=== PATIENT | male | born 1965 | race Hispanic/Latino ===

== ENCOUNTER 2022-11-01 16:05 | Emergency (ER) | payer SELFPAY ==
[2022-11-01 17:01] LABS: Absolute Lymphocytes (CBC) 1.9 K/uL (0.7-4.9); Hematocrit 41.6 % (39.6-49.0); Lymphocytes % 21.9 % (15.3-44.8); MCV 86.5 fL (80-100); MPV 8.6 fL (7.6-11.3); RBC Red Blood Cell Count 4.81 M/uL (4.33-5.43)
--- NOTE | 2022-11-01 17:24 | RAD REPORT ---
EXAM DESCRIPTION: CT - Head Brain Wo Cont - 11/01/2022 5:05 pm CLINICAL HISTORY: facial droop Headache, drowsiness COMPARISON: No comparisons TECHNIQUE: All CT scans are performed using dose optimization technique as appropriate and may inclu de automated exposure control or mA/KV adjustment according to patient size. FINDINGS: No intracranial hemorrhage, hydrocephalus or extra-axial fluid collection.No areas of brai n edema or evidence of midline shift. The paranasal sinuses and mastoids are clear. The calvarium is intact. IMPRESSION: No acute intracranial abnormality.
[2022-11-01 17:27] LABS: Albumin 3.8 g/dL (3.4-5.0); Bilirubin Total 0.6 mg/dL (0.2-1.0); Potassium 3.6 mmol/L (3.5-5.1); Protein, Total 7.6 g/dL (6.4-8.2); Troponin High Sensitivity 5.8 pg/mL (<58.9)
[2022-11-01] MEDS ORDERED: predniSONE 20 MG TAB ONE (17:41)
[2022-11-01] MEDS ORDERED: VALACYCLOVIR 500 MG TAB ONE (17:41)
--- NOTE | 2022-11-01 18:05 | EDPHYS ---
Physician Documentation [facility] Name: González Augustine Age: 57 yrs Sex: Male : 1965 Arrival Date: 11/01/2022 Time: 16:08 Bed 15 Private MD: ED Physician Mary Jane Alvarez HPI: 11/01 17:20 This 57 yrs old Male presents to ER via EMS with complaints of Facial Droop. sd2 17:20 57 yo M presents via EMS with CC of facial droop. First noticed by the family to have sd2 some drooping of the left side of his face this afternoon. LKW time that patient knows for sure was last night when he went to bed. Pt denies any slurred speech, vision changes, numbness or weakness. Reports incomplete closure when he blinks of his right eyelid. . Historical: - Allergies: 16:11 No Known Allergies; eh3 - Home Meds: 16:33 acetaminophen-codeine 300-30 mg Oral tab 1 tab every 4 hours [Active]; cephalexin 500 eh3 mg Oral tab 1 tab Q4H prn [Active]; Zofran (as hydrochloride) 4 mg Oral tab 1 tabs Q4H prn [Active]; - PMHx: 16:33 Pneumonia; eh3 - Immunization history:: Adult Immunizations up to date. - Social history:: Smoking status: unknown. ROS: 17:20 Constitutional: Negative for fever, chills, and weight loss, Eyes: Negative for injury, sd2 pain, redness, and discharge, Cardiovascular: Negative for chest pain, palpitations, and edema, Respiratory: Negative for shortness of breath, cough, wheezing. Abdomen/GI: Negative for abdominal pain, nausea, vomiting, diarrhea. MS/Extremity: Negative for injury and deformity, Skin: Negative for injury, rash, and discoloration, Neuro: Negative for headache, numbness and tingling. Positive for facial droop Exam: 17:20 Constitutional: This is a well developed, well nourished patient who is awake, alert, sd2 and in no acute distress. Head/Face: Normocephalic, atraumatic. Eyes: EOMI, normal conjunctiva bilaterally Chest/axilla: Normal chest wall appearance and motion. Nontender with no deformity. Cardiovascular: Regular rate and rhythm with a normal S1 and S2. No gallops, murmurs, or rubs. 2+ distal pulses. Respiratory: Lungs have equal breath sounds bilaterally, clear to auscultation and percussion. No rales, rhonchi or wheezes noted. No increased work of breathing, no retractions or nasal flaring. Abdomen/GI: Soft, non-tender, with normal bowel sounds. No guarding or rebound. No evidence of tenderness throughout. Skin: Warm, dry with normal turgor. Normal color with no rashes, no lesions, and no evidence of cellulitis. MS/ Extremity: Pulses equal, no cyanosis. Neurovascular intact. Full, normal range of motion. Ambulatory without difficulty. Neuro: Awake and alert, GCS 15, oriented to person, place, time, and situation. Pt on initial inspection with what appears to be L lower facial droop but upon cranial nerve testing, the left side of the face is fully functioning but the right side appears to have paralysis with incomplete closure of R eyelid when blinking. Motor function of bilateral forehead appears intact. Motor strength 5/5 in all extremities. Sensory grossly intact. Cerebellar exam normal. Normal gait. Psych: Awake, alert, with orientation to person, place and time. Behavior, mood, and affect are within normal limits. Vital Signs: 16:11 BP 142 / 79; Pulse 64; Resp 18; Pulse Ox 99% on R/A; eh3 17:00 BP 149 / 82; Pulse 67; Resp 19; Pulse Ox 100% on R/A; eh3 MDM: 16:08 Patient medically screened. sd2 17:20 Data reviewed: vital signs, nurses notes. sd2 18:02 Data reviewed: lab test result(s), radiologic studies. Counseling: I had a detailed sd2 discussion with the patient and/or guardian regarding: the historical points, exam findings, and any diagnostic results supporting the discharge/admit diagnosis, lab results, radiology results, the need for outpatient follow up, to return to the emergency department if symptoms worsen or persist or if there are any questions or concerns that arise at home. Medical screen evaluation completed. EMTALA emergency medical condition absent. ED course: Labs and imaging reviewed. Labs grossly WNCL. CT with no acute abnormality. Exam consistent with Velarde's palsy. No further neuro deficits or changes while in ER. Will plan to discharge with steroids and antivirals. Pt in agreement with discharge plan and will follow up with PCP. Verbalizes understanding of discharge plan and strict return precautions. . 11/01 16:28 Order name: Glucose, Ancillary Testing; Complete Time: 16:29 EDNC 11/01 16:40 Order name: CBC with Diff; Complete Time: 17:26 sd2 11/01 16:40 Order name: CMP; Complete Time: 17:29 sd2 11/01 16:40 Order name: Troponin High Sensitivity; Complete Time: 17:29 sd2 11/01 16:40 Order name: CT Head Brain wo Cont; Complete Time: 17:26 sd2 11/01 16:40 Order name: EKG - Nurse/Tech; Complete Time: 16:55 sd2 Administered Medications: 15:45 Drug: predniSONE 60 mg Route: PO; 3 18:16 Follow up: Response: No adverse reaction 3 15:45 Drug: valACYclovir 1000 mg Route: PO; 3 18:16 Follow up: Response: No adverse reaction 3 Point of Care Testing: Blood Glucose: 16:11 Blood Glucose: 108 mg/dL; 3 Ranges: Critical Glucose Levels:Adult <50 mg/dl or >400 mg/dl <40 mg/dl or >180 mg/dl Disposition Summary: 11/01/22 18:04 Discharge Ordered Location: Home sd2 Problem: new sd2 Symptoms: are unchanged sd2 Condition: Stable sd2 Diagnosis - Velarde's palsy sd2 Followup: sd2 - With: Private Physician - When: 2 - 3 days - Reason: Recheck today's complaints, Continuance of care, Re-evaluation by your physician Discharge Instructions: - Discharge Summary Sheet sd2 - Velarde Palsy, Adult sd2 Forms: - Medication Reconciliation Form sd2 - Thank You Letter sd2 - Antibiotic Education sd2 - Prescription Opioid Use sd2 Prescriptions: - Prednisone 20 mg Oral Tablet - take 3 tablets by ORAL route once daily for 7 days; 21 tablet; Refills: 0, sd2 Product Selection Permitted - Valtrex 1 gram Oral tablet - take 1 tablet by ORAL route 3 times per day for 7 days; 21 tablet; Refills: 0, jmm Product Selection Permitted Signatures: Dispatcher [employer] Shandra Orozco RN RN 3 Mary Jane Alvarez MD MD sd2
--- NOTE | 2022-11-01 18:05 | ER ---
Nurse's Notes [facility] Name: González Augustine Age: 57 yrs Sex: Male : 1965 Arrival Date: 11/01/2022 Time: 16:08 Bed 15 Private MD: Diagnosis: Velarde's palsy Presentation: 11/01 16:11 Chief complaint: EMS states: toned out for R sided pain in base of head and neck for 3 past 2-3 days, then today pt family noticed R sided facial droop. Ebola Screen: No symptoms or risks identified at this time. 16:11 Method Of Arrival: EMS: [facility] 16:11 No acute neurological deficit is noted. The patients blood glucose was checked before [facility] arriving to the hospital and was found to be normal. Initial Sepsis Screen: Does the patient meet any 2 criteria? No. Patient's initial sepsis screen is negative. Does the patient have a suspected source of infection? No. Patient's initial sepsis screen is negative. Risk Assessment: Do you want to hurt yourself or someone else? Patient reports no desire to harm self or others. Onset of symptoms was November 01, 2022. 16:11 Acuity: LUAN 2 3 16:11 Coronavirus screen: Vaccine status: Patient reports receiving the 2nd dose of the covid eh3 vaccine. Triage Assessment: 16:11 The onset of the patients symptoms was November 01, 2022 at 13:30. General: Appears in 3 no apparent distress. comfortable, Behavior is calm, cooperative, appropriate for age. Pain: Complains of pain in neck. EENT: No signs and/or symptoms were reported regarding the EENT system. Neuro: Pisano Agitation-Sedation Scale (RASS): 0 - Alert and Calm Level of Consciousness is awake, alert, obeys commands, Oriented to person, place, time, situation, Instructional Interventionist are equal bilaterally Moves all extremities. Gait is steady, Speech is normal, Facial droop on right, Pupils are PERRLA, Intact Reports headache in right Denies weakness blurred vision dizziness, difficulty swallowing, paresthesias numbness photophobia diplopia. Cardiovascular: Capillary refill < 3 seconds Patient's skin is warm and dry. Respiratory: Airway is patent Respiratory effort is even, unlabored, Respiratory pattern is regular, symmetrical. GI: No signs and/or symptoms were reported involving the gastrointestinal system. Abdomen is round non-distended. : No signs and/or symptoms were reported regarding the genitourinary system. Derm: No signs and/or symptoms reported regarding the dermatologic system. Musculoskeletal: No signs and/or symptoms reported regarding the musculoskeletal system. Circulation, motion, and sensation intact. Range of motion: intact in all extremities. Historical: - Allergies: 16:11 No Known Allergies; eh3 - Home Meds: 16:33 acetaminophen-codeine 300-30 mg Oral tab 1 tab every 4 hours [Active]; cephalexin 500 eh3 mg Oral tab 1 tab Q4H prn [Active]; Zofran (as hydrochloride) 4 mg Oral tab 1 tabs Q4H prn [Active]; - PMHx: 16:33 Pneumonia; eh3 - Immunization history:: Adult Immunizations up to date. - Social history:: Smoking status: unknown. Screenin:11 [facility] ED Fall Risk Assessment (Adult) History of falling in the last 3 months, 3 including since admission No falls in past 3 months (0 pts) Confusion or Disorientation No (0 pts) Intoxicated or Sedated No (0 pts) Impaired Gait No (0 pts) Mobility Assist Device Used No (0 pt) Altered Elimination No (0 pt) Score/Fall Risk Level 0 - 2 = Low Risk Oriented to surroundings, Maintained a safe environment, Educated pt \T\ family on fall prevention, incl call for assistance when getting out of bed, Assessed \T\ reinforced patient's understanding of fall precautions, Hourly rounding (assess needs \T\ fall precautionary measures) done. Abuse screen: Denies threats or abuse. Denies injuries from another. Nutritional screening: No deficits noted. Tuberculosis screening: No symptoms or risk factors identified. Assessment: 16:11 Reassessment: No changes from previously documented assessment. See triage assessment. 3 17:00 Reassessment: Patient appears in no apparent distress at this time. Patient and/or 3 family updated on plan of care and expected duration. Pain level reassessed. Patient is alert, oriented x 3, equal unlabored respirations, skin warm/dry/pink. Vital Signs: 16:11 BP 142 / 79; Pulse 64; Resp 18; Pulse Ox 99% on R/A; eh3 17:00 BP 149 / 82; Pulse 67; Resp 19; Pulse Ox 100% on R/A; eh3 ED Course: 16:08 Patient arrived in ED. em1 16:08 Mary Jane Alvarez MD is Attending Physician. sd2 16:11 Shandra Au, RN is Primary Nurse. eh3 16:11 Patient has correct armband on for positive identification. Placed in gown. Bed in low eh3 position. Call light in reach. Side rails up X2. Client placed on continuous cardiac and pulse oximetry monitoring. NIBP monitoring applied. Door closed. Noise minimized. Warm blanket given. 16:33 Triage completed. eh3 16:55 Troponin High Sensitivity Sent. rs5 16:55 CMP Sent. rs5 16:55 CBC with Diff Sent. rs5 16:55 Inserted saline lock: 20 gauge in right forearm, using aseptic technique. Blood rs5 collected. 17:07 CT Head Brain wo Cont In Process Unspecified. EDMS 18:16 No provider procedures requiring assistance completed. IV discontinued, intact, eh3 bleeding controlled, No redness/swelling at site. Pressure dressing applied. 18:17 Arm band placed on. eh3 Administered Medications: 15:45 Drug: predniSONE 60 mg Route: PO; 3 18:16 Follow up: Response: No adverse reaction eh3 15:45 Drug: valACYclovir 1000 mg Route: PO; eh3 18:16 Follow up: Response: No adverse reaction 3 Medication: 18:16 VIS not applicable for this client. 3 Point of Care Testing: Blood Glucose: 16:11 Blood Glucose: 108 mg/dL; 3 Ranges: Outcome: 18:04 Discharge ordered by . sd2 18:17 Discharged to home ambulatory, with family. eh3 18:17 Condition: stable 18:17 Discharge instructions given to patient, family, Instructed on discharge instructions, follow up and referral plans. medication usage, Demonstrated understanding of instructions, follow-up care, medications, Prescriptions given X 2. 18:17 Patient left the ED. 3 Signatures: Dispatcher [employer] Holger Esteban em1 Shandra Au, RN RN 3 Mary Jane Alvarez MD MD sd2 Luiz Crowe rs5
[2022-11-01 18:38] VITALS: BP 149/82; O2SAT 100
== END 2022-11-01 18:17 | disposition home or self-care (01) ==
LOC: ER 16:05
DX: G51.0 Bell's palsy (principal)
CPT/HCPCS: 36415; 70450; 80053; 82947; 84484; 85025; 93005; J7512